=== PATIENT | female | born 1965 | race American Indian/Alaskan Native ===

== ENCOUNTER 2016-07-15 20:33 | Emergency (ER) | payer MEDICAID ==
[2016-07-15 21:17] LABS: Hematocrit 30.3 % (30.3-42.9); Hemoglobin 9.2 gm/dl (10.1-14.3); Mean Corpuscular HGB Conc 30 % (30-34); Platelet Count 432 K/mm3 (140-440); Red Blood Count 4.59 M/mm3 (3.65-5.03); Red Cell Distribution Width 19.2 % (13.2-15.2); White Blood Count 3.4 K/mm3 (4.5-11.0)
[2016-07-15 21:23] LABS: Mean Corpuscular Hemoglobin 20 pg (28-32); Mean Corpuscular Volume 66 fl (79-97)
[2016-07-15 21:55] LABS: Basophils % (Manual) 0 % (0.0-1.8); Blastocytes % (Manual) 0 %
[2016-07-15 21:57] LABS: Anisocytosis 1+; Hypochromasia 1+
[2016-07-15 21:58] LABS: Diff Status Complete; Elliptocytes 1+; Microcytosis 1+; Platelet Estimate Consistent w Auto
[2016-07-15 22:07] LABS: Anion Gap 14 mmol/L; Blood Urea Nitrogen 11 mg/dL (7-17); Calcium 8.7 mg/dL (8.4-10.2); Carbon Dioxide 31 mmol/L (22-30); Chloride 99.1 mmol/L (98-107); Glucose 95 mg/dL (65-100); Potassium 3.4 mmol/L (3.6-5.0); Sodium 141 mmol/L (137-145)
[2016-07-15] MEDS ORDERED: MORPHINE IV ONE (23:17)
[2016-07-15] MEDS ORDERED: ZOFRAN IV ONE (23:17)
[2016-07-15] MEDS ORDERED: VALIUM IV ONE (23:19)
--- NOTE | 2016-07-15 23:45 | Emergency Department Report ---
HPI - General Chief Complaint: Chest Pain Time Seen by Provider: 07/15/16 22:41 - HPI HPI: The patient is a 51-year-old female who presents for evaluation of chest pain. The patient reports chest pain for the past 3 days, midsternal in location, 12/ 10 in severity, aching in quality, and radiating into the epigastric abdomen at times. The patient denies trauma to the chest wall, syncope, dyspnea, cough, hemoptysis, dizziness, vomiting, unilateral leg swelling, calf muscle pain. Patient also denies cocaine or other stimulant use, history of DVT or PE, recent immobilization, or history of cancer. ED Past Medical Hx - Past Medical History Previous Medical History?: Yes Additional medical history: eppilepsy - Surgical History Past Surgical History?: No - Social History Smoking Status: Never Smoker Substance Use Type: None - Medications Home Medications: Home Medications Medication Instructions Recorded Confirmed Last Taken Type Ciprofloxacin HCl [Ciprofloxacin 500 mg PO BID #14 tablet 11/22/15 Unknown Rx TAB] HYDROcodone/APAP 7.5-325 [[place] 1 each PO Q8HR PRN #12 tablet 07/16/16 Unknown Rx 7.5-325 mg TAB] Nystatin [Nystatin SUSP] 5 ml PO QID #1 bottle 07/16/16 Unknown Rx Ondansetron [Zofran TAB] 4 mg PO Q8HR PRN #15 tablet 07/16/16 Unknown Rx ED Review of Systems ROS: Stated complaint: RAFAEL/CP Other details as noted in HPI Constitutional: denies: fever ENT: denies: throat or neck pain Respiratory: denies: cough, shortness of breath Cardiovascular: reports chest pain Endocrine: denies unexplained weight loss or gain Gastrointestinal: denies: abdominal pain, nausea Genitourinary: denies: dysuria Musculoskeletal: denies: leg swelling Skin: denies: rash Neurological: denies: headache Hematological/Lymphatic: denies: easy bleeding or easy bruising Psych: denies sadness or hopelessness Physical Exam - Physical Exam Vital Signs: Vital Signs 07/15/16 07/15/16 07/15/16 20:50 22:54 23:03 Temperature 98 F Pulse Rate 90 92 H Respiratory 20 18 18 Rate Blood Pressure 135/96 128/92 Blood Pressure 135/96 [Left] O2 Sat by Pulse 100 98 100 Oximetry Physical Exam: General: well-nourished, well-developed, no acute distress Head: Normocephalic, atraumatic Eyes: normal sclera ENT: Mucous membranes are pink and moist Neck: trachea midline, neck supple, No neck stiffness, no cervical adenopathy Respiratory: Breath sounds equal bilaterally, no wheezing, rales, or rhonchi Cardio: S1 and S2 present, no murmurs, rubs, gallops, capillary refill is brisk Abdomen: Normoactive bowel sounds, soft abdomen, epigastric tenderness to palpation present, no rigidity, no guarding or rebound tenderness Chest WALL/Back: No tenderness to palpation of the chest wall, no CVA tenderness with percussion Musc: No pitting edema Skin: No rash Neuro: no facial drooping, normal speech Psych: Normal affect ED Course Vital Signs 07/15/16 07/15/16 07/15/16 20:50 22:54 23:03 Temperature 98 F Pulse Rate 90 92 H Respiratory 20 18 18 Rate Blood Pressure 135/96 128/92 Blood Pressure 135/96 [Left] O2 Sat by Pulse 100 98 100 Oximetry ED Medical Decision Making - Lab Data Result diagrams: 07/15/16 21:07 07/15/16 21:07 - Medical Decision Making The patient was seen and examined by myself. The patient is placed on a cardiac/vascular sonographer and continuous pulse ox. On initial evaluation, the patient was found to be in no distress. EKG was negative for findings suggestive of acute cardiac infarct. Labs and imaging are obtained. The patient is given IV dose of morphine for pain. Chest x-ray is negative for pneumothorax, focal consolidation, pulmonary vascular congestion, pleural effusion, or other obvious acute cardiopulmonary disease process. Lab results were non-concerning including levels of troponin, WBC, hemoglobin, hematocrit, electrolytes, renal function, LFTs, lipase, and negative test. The patient was reevaluated and reported that their symptoms were markedly improved. As the patient has a VICK risk score less than 2, and a well's score less than 2, the patient is at low risk of ACS or pulmonary emboli etiology of their symptoms. The patient is stable for discharge with outpatient follow-up. The patient is given follow-up and return instructions. The patient expressed understanding and agreed with the plan. The patient is discharged in stable condition. Critical care attestation.: If time is entered above; I have spent that time in minutes in the direct care of this critically ill patient, excluding procedure time. ED Disposition Clinical Impression: Acute chest pain, Abdominal pain, acute, epigastric Disposition: DISCHARGED TO HOME OR SELFCARE Is pt being admited?: No Does the pt Need Aspirin: No Condition: Stable Instructions: Chest Pain (ED) Prescriptions: HYDROcodone/APAP 7.5-325 [[place] 7.5-325 mg TAB] 1 each PO Q8HR PRN #12 tablet PRN Reason: Pain Nystatin [Nystatin SUSP] 5 ml PO QID #1 bottle Ondansetron [Zofran TAB] 4 mg PO Q8HR PRN #15 tablet PRN Reason: Nausea Referrals: PRIMARY CARE, [Primary Care Provider] - 3-5 Days Time of Disposition: 23:19
[2016-07-16 00:29] LABS: Alanine Aminotransferase 10 units/L (7-56); Albumin 3.5 g/dL (3.9-5); Albumin/Globulin Ratio 0.9 %; Alkaline Phosphatase 268 units/L (35-129); Bilirubin,Total 0.2 mg/dL (0.1-1.2); Lipase 20 units/L (13-60); Total Protein 7.6 g/dL (6.3-8.2)
[2016-07-16 00:31] LABS: Bilirubin,Direct < 0.2 mg/dL (0-0.2)
[2016-07-16 03:40] VITALS: BP 113/77
[2016-07-16] MEDS ORDERED: MORPHINE IV ONE (03:47)
--- NOTE | 2016-07-16 09:03 | XRay Report ---
CHEST ONE VIEW INDICATION: Chest pain. COMPARISON: None similar at this institution. FINDINGS: Portable, single, frontal chest radiograph demonstrates normal cardiomediastinal silhouette. Clear lungs. Possibly postsurgical right distal clavicular tapering/absence. Extrinsic EKG leads. CONCLUSION: No acute disease in the chest. Thank you for the opportunity to participate in this patient's care.
== END 2016-07-16 04:50 | disposition home or self-care (01) ==
LOC: ED 20:33
DX: R07.2 Precordial pain (principal); R10.13 Epigastric pain; G40.909 Epilepsy, unspecified, not intractable, without status epilepticus
CPT/HCPCS: 36415; 71010; 80048; 80074; 83690; 84484; 84703; 85007; 85025; 93005; 93010; 96374; 96375; 99285; J2270; J2405; J3360

== ENCOUNTER 2016-08-10 16:31 | Emergency (ER) | payer MEDICAID ==
[2016-08-10] MEDS ORDERED: KEPPRA 1,000 MG/NS 0.75% 100ML 1,000 MG/100 ML BAG IV ONE (17:46)
[2016-08-10] MEDS ORDERED: ZOFRAN IV ONE (17:59)
[2016-08-10] MEDS ORDERED: MORPHINE IV ONE (17:59)
--- NOTE | 2016-08-10 18:19 | Emergency Department Report ---
ED Seizure HPI - General Chief Complaint: Seizure Stated Complaint: SEIZURES Time Seen by Provider: 08/10/16 17:45 Source: patient, EMS Mode of arrival: Stretcher Limitations: No Limitations - History of Present Illness Initial Comments: 51-year-old female with a past medical history of seizures presents to the hospital complaining of multiple seizures today. Family members report 13 seizures but it appears the patient had 8 minute episode of repeated jerking/ seizure episodes. Patient states her preceding symptoms including shaking and headache. Currently she complains of pain to hands, legs, and ribs. Pain is moderate to severe in intensity without aggravating or alleviating factors. No reports of tongue laceration or urinary incontinence. Patient has not taken her seizure medication 1 month. She does not have a primary care doctor or neurologist. - Related Data Previous Rx's Medication Instructions Recorded Last Taken Type Nystatin [Nystatin SUSP] 5 ml PO QID #1 bottle 07/16/16 Unknown Rx Ferrous Sulfate [Feosol 325 MG tab] 325 mg PO QDAY #30 tablet 08/10/16 Unknown Rx HYDROcodone/APAP 5-325 [[place] 1 each PO Q6HR PRN #10 tablet 08/10/16 Unknown Rx 5/325] levETIRAcetam [Keppra TAB] 500 mg PO BID #60 tablet 08/10/16 Unknown Rx Allergies Allergy/AdvReac Type Severity Reaction Status Date / Time No Known Allergies Allergy Verified 07/15/16 20:49 ED Review of Systems ROS: Stated complaint: SEIZURES Other details as noted in HPI Comment: All other systems reviewed and negative Other: Constitutional: No fevers chills Eyes: No eye pain visual changes ENT: No ear pain or throat pain Neck: Denies pain Respiratory: Denies cough wheezing shortness of breath Cardiovascular: Denies chest pain, palpitations, syncope GI: Denies abdominal pain, nausea, vomiting, diarrhea : Denies dysuria Musculoskeletal:as per hpi Skin: Denies rash, lesions, erythema Neurologic: Denies headache, numbness, weakness Psychiatric: Denies suicidal ideation, hallucinations ED Past Medical Hx - Past Medical History Hx Seizures: Yes Additional medical history: epilepsy - Social History Smoking Status: Current Every Day Smoker Substance Use Type: None - Medications Home Medications: Home Medications Medication Instructions Recorded Confirmed Last Taken Type Nystatin [Nystatin SUSP] 5 ml PO QID #1 bottle 07/16/16 08/10/16 Unknown Rx Ferrous Sulfate [Feosol 325 MG tab] 325 mg PO QDAY #30 tablet 08/10/16 Unknown Rx HYDROcodone/APAP 5-325 [[place] 1 each PO Q6HR PRN #10 tablet 08/10/16 Unknown Rx 5/325] levETIRAcetam [Keppra TAB] 500 mg PO BID #60 tablet 08/10/16 Unknown Rx ED Physical Exam - General Limitations: No Limitations - Other Other exam information: General: No limitations, patient is alert in no acute distress Head exam: Atraumatic, normocephalic Eyes exam: Normal appearance ENT: Moist mucous membrane, normal oropharynx Neck exam: Normal inspection, full range of motion, no meningismus nontender Respiratory exam: Clear to auscultation bilateral, no wheezes, rales, crackles Cardiovascular: Normal rate and rhythm, normal heart sounds Abdomen: Soft, nondistended, and nontender, with normal bowel sounds, no rebound, or guarding Extremity: Full range of motion normal inspection no deformity Back: Normal Inspection, full range of motion, no tenderness Neurologic: Alert, oriented x3, cranial nerves intact, no motor or sensory deficit Psychiatric: normal affect, normal mood Skin: Warm, dry, intact ED Course Vital Signs 08/10/16 08/10/16 08/10/16 17:21 18:05 19:20 Temperature 98.6 F Pulse Rate 94 H Respiratory 18 18 18 Rate Blood Pressure 110/78 O2 Sat by Pulse 100 100 Oximetry ED Medical Decision Making - Lab Data Result diagrams: 08/10/16 18:03 08/10/16 18:03 Lab Results 08/10/16 08/10/16 Range/Units 18:03 18:03 WBC 3.4 L (4.5-11.0) K/mm3 RBC 4.39 (3.65-5.03) M/mm3 Hgb 8.9 L (10.1-14.3) gm/dl Hct 28.4 L (30.3-42.9) % MCV 65 L (79-97) fl MCH 20 L (28-32) pg MCHC 32 (30-34) % RDW 19.0 H (13.2-15.2) % Plt Count 352 (140-440) K/mm3 Lymph % (Auto) Social Work Coordinator [place] % (Auto) Social Work Coordinator Eos % (Auto) Social Work Coordinator Baso % (Auto) Social Work Coordinator Lymph # Social Work Coordinator [place] # Social Work Coordinator Eos # Social Work Coordinator Baso # Social Work Coordinator Add Manual Diff Complete Total Counted 100 Seg Neutrophils % Social Work Coordinator Seg Neuts % (Manual) 46.0 (40.0-70.0) % Band Neutrophils % 21.0 % Lymphocytes % (Manual) 14.0 (13.4-35.0) % Reactive Lymphs % (Man) 2.0 % Monocytes % (Manual) 10.0 H (0.0-7.3) % Eosinophils % (Manual) 6.0 H (0.0-4.3) % Basophils % (Manual) 1.0 (0.0-1.8) % Metamyelocytes % 0 % Myelocytes % 0 % Promyelocytes % 0 % Blast Cells % 0 % Nucleated RBC % Not Reportable Seg Neutrophils # Social Work Coordinator Seg Neutrophils # Man 1.6 L (1.8-7.7) K/mm3 Band Neutrophils # 0.7 K/mm3 Lymphocytes # (Manual) 0.5 L (1.2-5.4) K/mm3 Abs React Lymphs (Man) 0.1 K/mm3 Monocytes # (Manual) 0.3 (0.0-0.8) K/mm3 Eosinophils # (Manual) 0.2 (0.0-0.4) K/mm3 Basophils # (Manual) 0.0 (0.0-0.1) K/mm3 Metamyelocytes # 0.0 K/mm3 Myelocytes # 0.0 K/mm3 Promyelocytes # 0.0 K/mm3 Blast Cells # 0.0 K/mm3 WBC Morphology Not Reportable Hypersegmented Neuts Not Reportable Hyposegmented Neuts Not Reportable Hypogranular Neuts Not Reportable Smudge Cells Not Reportable Toxic Granulation Not Reportable Toxic Vacuolation Not Reportable Dohle Bodies Not Reportable Pelger-Huet Anomaly Not Reportable Tim Rods Not Reportable Platelet Estimate Consistent w auto Clumped Platelets Not Reportable Plt Clumps, EDTA Not Reportable Large Platelets Few Giant Platelets Not Reportable Platelet Satelliting Not Reportable Plt Morphology Comment Not Reportable RBC Morphology Not Reportable Dimorphic RBCs Not Reportable Polychromasia Few Hypochromasia 2+ Poikilocytosis 1+ Anisocytosis 1+ Microcytosis 3+ Macrocytosis Not Reportable Spherocytes Not Reportable Pappenheimer Bodies Not Reportable Sickle Cells Not Reportable Target Cells Not Reportable Tear Drop Cells Not Reportable Ovalocytes Not Reportable Helmet Cells Not Reportable [place] Bodies Not Reportable [place] Rings Not Reportable [place] Cells Not Reportable Bite Cells Not Reportable Crenated Cell Not Reportable Elliptocytes Few Acanthocytes (Spur) Not Reportable Rouleaux Not Reportable Hemoglobin C Crystals Not Reportable Schistocytes Not Reportable Malaria parasites Not Reportable [place] Bodies Not Reportable Hem Pathologist Commnt No Sodium 139 (137-145) mmol/L Potassium 3.5 L (3.6-5.0) mmol/L Chloride 100.6 (98-107) mmol/L Carbon Dioxide 25 (22-30) mmol/L Anion Gap 17 mmol/L BUN 9 (7-17) mg/dL Creatinine 0.4 L (0.7-1.2) mg/dL Estimated GFR > 60 ml/min BUN/Creatinine Ratio 22.50 % Glucose 83 (65-100) mg/dL Calcium 8.4 (8.4-10.2) mg/dL Magnesium 1.6 L (1.7-2.3) mg/dL - Medical Decision Making Patient was loaded with Keppra and received IV magnesium and by mouth potassium for mild electrolyte abnormalities. Patient has microcytic anemia likely secondary to iron deficiency. Iron tablets will be prescribed in addition to refill of Keppra. - Differential Diagnosis seizure, electrolyte abnormalities, medication noncompliance Critical Care Time: No Critical care attestation.: If time is entered above; I have spent that time in minutes in the direct care of this critically ill patient, excluding procedure time. ED Disposition Clinical Impression: Seizure, Noncompliance with medication regimen, Hypomagnesemia, Hypokalemia, Microcytic anemia Disposition: DISCHARGED TO HOME OR SELFCARE Is pt being admited?: No Does the pt Need Aspirin: No Condition: Stable Instructions: Hypokalemia (ED), Hypomagnesemia (ED), Recurrent Seizures Adult (ED), Anemia (ED) Additional Instructions: Take the medication as prescribed. Follow up with a neurologist and primary care doctor. Return if symptoms worsen Prescriptions: Ferrous Sulfate [Feosol 325 MG tab] 325 mg PO QDAY #30 tablet HYDROcodone/APAP 5-325 [[place] 5/325] 1 each PO Q6HR PRN #10 tablet PRN Reason: Pain levETIRAcetam [Keppra TAB] 500 mg PO BID #60 tablet Referrals: HERMELINDA ZHU MD [Staff Physician] - 3-5 Days (neurology) [facility] [Provider Group] - 3-5 Days (primary care clinic) FANTASMA FLETCHER MD [Staff Physician] - 3-5 Days (Primary care ) Time of Disposition: 21:03
[2016-08-10 18:45] LABS: Anion Gap 17 mmol/L; Blood Urea Nitrogen 9 mg/dL (7-17); Calcium 8.4 mg/dL (8.4-10.2); Carbon Dioxide 25 mmol/L (22-30); Chloride 100.6 mmol/L (98-107); Glucose 83 mg/dL (65-100); Magnesium 1.6 mg/dL (1.7-2.3); Potassium 3.5 mmol/L (3.6-5.0); Sodium 139 mmol/L (137-145)
[2016-08-10 18:50] LABS: Hematocrit 28.4 % (30.3-42.9); Hemoglobin 8.9 gm/dl (10.1-14.3); Mean Corpuscular HGB Conc 32 % (30-34); Platelet Count 352 K/mm3 (140-440); Red Blood Count 4.39 M/mm3 (3.65-5.03); White Blood Count 3.4 K/mm3 (4.5-11.0)
[2016-08-10 18:58] LABS: Mean Corpuscular Hemoglobin 20 pg (28-32); Mean Corpuscular Volume 65 fl (79-97)
--- NOTE | 2016-08-10 19:41 | Admit Criteria Form ---
Admission Criteria Documentation: SEIZURE Clinical Indications for Admission to Inpatient Care (Place 'X' for any and all applicable criteria): Admission is indicated for seizure and ANY ONE of the following(1)(2)(3)(4)(5): [X ]I. Inpatient admission required rather than observation care (Also use Seizure: Observation Care Criteria as appropriate) because of ANY ONE of the following: [ ]a) Altered mental status that is severe or persistent [ ]b) New focal neurologic deficit that is severe or persistent [ ]c) Metabolic disorder (eg, hypoglycemia, hyponatremia) that is severe or persistent [X ]d) Recurrent seizure [ ]e) Outpatient antiseizure regimen cannot be established (eg , patient cannot tolerate medication, initiation requires inpatient care) [ ]f) Need for ongoing intravenous infusion of antiseizure medication [ ]g) Cardiac arrhythmias of immediate concern [ ]h) Cerebral bleeding, hydrocephalus, or vasospasm monitoring (14) [ ]i) Increased intracranial pressure or cerebral edema monitoring (15) [ ]j) Other treatment or monitoring requiring inpatient admission [ ]II. Status epilepticus [A] or repetitive seizures not controlled with emergent treatment (6)(8) [ ]III. Brain disorder (eg, tumor, edema, and hydrocephalus) that requiring monitoring or intervention available only at inpatient level of care. [ ]IV. Brain insult (eg, severe trauma, stroke, drug toxicity, or withdrawal) that requires monitoring or intervention available only at inpatient level of care (10)(11) Extended stay beyond goal length of stay may be needed for (22) [ ]a) Complications of status epilepticus [ ]b) Refractory status epilepticus [ ]c) Etiology-specific therapy for conditions such as PAPER MACHINE BACKTENDER infection, head injury,eclampsia, severe metabolic abnormalities, and brain tumor [ ]d) Residual neurologic damage, [ ]e) Initiation of significant change to anticonvulsant treatment [ ]f) Older patients (65 years or older) [ ]g) Patient requiring intubation (eg, to protect airway) The original [facility] content created by [email or web address] has been revised. The portions of the content which have been revised are identified through the use of italic text or in bold, and [email or web address] has neither reviewed nor approved the modified material. All other unmodified content is copyright [facility] ([employer]). Please see references footnoted in the original [facility] edition 2016
[2016-08-10] MEDS ORDERED: MAGNESIUM SULFATE 2GM/50ML 2 GM/50 ML BAG IV ONE (19:46)
[2016-08-10] MEDS ORDERED: K-DUR PO ONE (19:46)
[2016-08-10 20:36] LABS: Blastocytes % (Manual) 0 %
[2016-08-10 20:37] LABS: Anisocytosis 1+; Hypochromasia 2+; Microcytosis 3+; Poikilocytosis 1+
[2016-08-10 20:38] LABS: Diff Status Complete; Elliptocytes Few; Large Platelets Few; Platelet Estimate Consistent w Auto; Polychromasia Few
[2016-08-10 21:31] VITALS: BP 121/86
== END 2016-08-10 21:45 | disposition home or self-care (01) ==
LOC: ED 16:31
DX: G40.909 Epilepsy, unspecified, not intractable, without status epilepticus (principal); E83.42 Hypomagnesemia; E87.6 Hypokalemia; D50.9 Iron deficiency anemia, unspecified; F17.200 Nicotine dependence, unspecified, uncomplicated; Z91.14 Patient's other noncompliance with medication regimen
CPT/HCPCS: 36415; 80048; 83735; 85007; 85025; 96365; 96375; 99284; J1953; J2270; J2405; J3475; 82962

== ENCOUNTER 2018-07-31 12:23 | Emergency (ER) | payer MEDICAID, OTHER ==
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
[2018-07-31 12:44] VITALS: BP 140/80
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
[2018-07-31] MEDS ORDERED: FIORICET PO ONE (15:12)
== END 2018-07-31 16:14 | disposition home or self-care (01) ==
LOC: ED 12:23
DX: R51 Headache (principal); F17.200 Nicotine dependence, unspecified, uncomplicated; G40.909 Epilepsy, unspecified, not intractable, without status epilepticus
CPT/HCPCS: 70450; 99283

== ENCOUNTER 2018-09-09 11:24 | Emergency (ER) | payer MEDICAID, OTHER ==
[2018-09-09 11:58] VITALS: BP 114/82
--- NOTE | 2018-09-09 12:01 | Emergency Department Report ---
Chief Complaint: Headache Stated Complaint: BACK/HEAD INJURY Time Seen by Provider: 09/09/18 11:58 - HPI History of Present Illness: will need repeat CT headache see ct in 07/22 no clear follow up without focal deficit mse completed - Exam Vital Signs: Vital Signs 09/09/18 11:57 Temperature 98.4 F Pulse Rate 104 H Respiratory 18 Rate Blood Pressure 114/82 [Right] O2 Sat by Pulse 98 Oximetry MSE screening note: Focused history and physical exam performed. Due to findings the following was ordered: ED Disposition for MSE Condition: Stable
[2018-09-09 13:06] LABS: Hematocrit 35.5 % (30.3-42.9); Hemoglobin 11.8 gm/dl (10.1-14.3); Mean Corpuscular HGB Conc 33 % (30-34); Mean Corpuscular Volume 84 fl (79-97); Platelet Count 358 K/mm3 (140-440); Red Blood Count 4.25 M/mm3 (3.65-5.03); Red Cell Distribution Width 19.9 % (13.2-15.2)
--- NOTE | 2018-09-09 13:18 | Cat Scan Report ---
PROCEDURE: CT HEAD/BRAIN WO CON TECHNIQUE: Computerized tomography of the head was performed without contrast material. Coronal and s agittal reformatted images were provided. CT DOSE LENGTH PRODUCT: 805.4 mGy-cm. HISTORY: headache with aneurysm COMPARISONS: CT head July 31, 2018. FINDINGS: Series 2:17 demonstrates an ill-defined area of increased attenuation in the left anterior circulatio n which may represent a calcification or possible aneurysm. Overall appearance is unchanged compared to the prior. Larger area of increased density in the left cavernous sinus/medial temporal lobe measures 1.3 x 1.2 cm and is stable compared to prior. There is no evidence for acute ischemia. There is no hemorrhage. There is no midline shift. There is no hydrocephalus. Age appropriate baca-white matter attenuation is noted. There is no calvarial fracture. The temporal bones demonstrate aerated mastoid air cells. The middle ears appear unremarkable. Paranasal sinuses are unremarkable. Globes are intact. IMPRESSION: * Comparison with prior will be made as an addendum once requested prior images and report are provi ded. * Nonspecific density in the left anterior circulation may represent an aneurysm or calcification. S imilar to prior. Otherwise, no acute intracranial findings. * Larger lobulated area of increased density in the left cavernous sinus/medial left temporal lobe i s indeterminate but stable compared to prior. Differential diagnosis includes meningioma, aneurysm, t umor, and vascular malformation. * Otherwise, no acute intracranial findings. This document is electronically signed by Theo Chavez MD., Sep 09 2018 01:16:18 PM ET
[2018-09-09 13:23] LABS: BUN/Creatinine Ratio 15; Blood Urea Nitrogen 9 mg/dL (7-17); Calcium 8.1 mg/dL (8.4-10.2); Hemolysis Index 12
== END 2018-09-09 14:45 | disposition left against medical advice (07) ==
LOC: ED 11:24
DX: R51 Headache (principal); Z53.21 Procedure and treatment not carried out due to patient leaving prior to being seen by health care provider
CPT/HCPCS: 36415; 70450; 80048; 85027

== ENCOUNTER 2018-09-09 15:32 | Emergency (ER) | payer MEDICAID ==
--- NOTE | 2018-09-09 17:17 | Emergency Department Report ---
Chief Complaint: Headache Stated Complaint: HEAD PAIN Time Seen by Provider: 09/09/18 17:00 - HPI History of Present Illness: Ms. Colon is a 53 yo female with hx of intracranial aneurysm follow at [facility]. She has angiogram scheduled in 2 days. She is being evaluated for possible operative repair. She has had chronic headaches for several months. Headache is unchanged. She currently desires to leave AGAINST MEDICAL ADVICE. I reviewed CT head report obtained today which does not show any acute findings. Persistent intracranial abnormalities are unchanged. She has decision-making capacity. She politely declined any further evaluation. Claire gilman at the bedside witnessed the decision to leave AGAINST MEDICAL ADVICE. emergency nurse also witnessed this conversation. MSE screening note: Focused history and physical exam performed. Due to findings the following was ordered: ED Disposition for MSE Clinical Impression: Headache, Aneurysm of carotid artery Disposition: LEFT AGAINST MED ADVICE Is pt being admited?: No Does the pt Need Aspirin: No Condition: Stable
== END 2018-09-09 19:13 | disposition left against medical advice (07) ==
LOC: ED 15:32
DX: R51 Headache (principal); I72.0 Aneurysm of carotid artery
CPT/HCPCS: 36415; 70450; 80048; 85027; 99282

== ENCOUNTER 2019-01-28 11:35 | Emergency (ER) | payer MEDICAID ==
[2019-01-28 11:55] VITALS: BP 130/96
[2019-01-28 12:50] LABS: Alanine Aminotransferase 7 units/L (7-56); Albumin 3.3 g/dL (3.9-5); BUN/Creatinine Ratio 20; Blood Urea Nitrogen 10 mg/dL (7-17); Calcium 8.4 mg/dL (8.4-10.2); Hemolysis Index 20
[2019-01-28 12:52] LABS: Bilirubin,Direct < 0.2 mg/dL (0-0.2)
[2019-01-28 13:03] LABS: Hematocrit 35.5 % (30.3-42.9); Hemoglobin 11.8 gm/dl (10.1-14.3); Mean Corpuscular HGB Conc 33 % (30-34); Mean Corpuscular Volume 87 fl (79-97); Platelet Count 396 K/mm3 (140-440); Red Blood Count 4.08 M/mm3 (3.65-5.03)
== END 2019-01-28 13:00 | disposition left against medical advice (07) ==
LOC: ED 11:35
DX: R56.9 Unspecified convulsions (principal)
CPT/HCPCS: 36415; 80048; 80076; 80177; 80185; 82550; 85027; 99283